=== PATIENT | female | born 1980 | race Caucasian/White ===

== ENCOUNTER 2019-02-14 21:02 | Emergency (ER) | payer MEDICAID ==
[~2019-02-14] VITALS: Ht 144.8 cm; Wt 84.0 kg
[2019-02-14] MEDS ORDERED: VISCOUS LIDOCAINE 2% 15 ML UDC PO ONE (22:45)
[2019-02-14] MEDS ORDERED: MAGNESIUM/ALUMINUM HYDROXIDE/SIMETHICONE 30ML UDC PO ONE (22:45)
[2019-02-14 22:57] LABS: BASOPHILS % 0.8 % (0.0-2.0); EOSINOPHILS % 1.3 % (0.0-5.0); LYMPHOCYTES % 27.6 % (20.0-50.0); MEAN CORPUSCULAR HEMOGLOBIN 28.2 pg (28.0-32.0); MEAN CORPUSCULAR VOLUME 82.6 fL (81.0-99.0); MEAN PLATELET VOLUME 8.8 fl (7.4-10.4); MONOCYTES % 5.7 % (2.0-8.0); NEUTROPHILS % 64.6 % (40.0-76.0); PLATELET 253 x1000/uL (130-400); RED CELL DISTRIBUTION WIDTH 13.8 % (11.6-14.6)
[2019-02-14 22:58] LABS: CHLORIDE 106 mEq/L (98-107)
[2019-02-15 00:04] VITALS: BP 133/70
== END 2019-02-15 00:04 | disposition home or self-care (01) ==
LOC: ER 21:06
DX: R07.89 Other chest pain (principal); R06.00 Dyspnea, unspecified; E11.9 Type 2 diabetes mellitus without complications; I10 Essential (primary) hypertension; Z90.49 Acquired absence of other specified parts of digestive tract; Z90.710 Acquired absence of both cervix and uterus
CPT/HCPCS: 36415; 71045; 84484; 93005; 99284